=== PATIENT | female | born 1980 | race Caucasian/White ===

== ENCOUNTER → 2016-03-17 | Outpatient (CLI) | payer OTHER ==
[~2016-03-17] MED LIST: CARB100S PO; DIFL150T PO; JEVILIQ12; PHEN-414 PO; PHEN16.2 PO; ZOFR4TAB3 SL
== END ==
LOC: EEVIPCON 10:53 → TMNT 10:53
PROVIDERS: ATTEND Internal Medicine Interventional Cardiology
DX: E66.9 Obesity, unspecified (principal)
CPT/HCPCS: 97802

== ENCOUNTER → 2016-06-19 | Outpatient (CLI) | payer OTHER ==
[2016-06-19 10:20] LABS: HEMATOCRIT 44.5 % (35.0-46.0); MEAN CELL VOLUME 99.1 FL (80.0-100.0); MEAN CORPUSCULAR HGB CONC 34.3 % (32.0-36.0); PLATELET COUNT 301 TH/MM3 (150-450); RED BLOOD COUNT 4.49 MIL/MM3 (4.00-5.30); RED CELL DISTRIBUTION WIDTH 12.2 % (11.6-17.2); REVIEW FLAG FINAL; WHITE BLOOD COUNT 6.4 TH/MM3 (4.0-11.0)
[2016-06-19 10:48] LABS: ALKALINE PHOSPHATASE 85 U/L (45-117); ALT (GPT) 27 U/L (10-53); ANION GAP 9 MEQ/L (5-15); AST (GOT) 24 U/L (15-37); BLOOD UREA NITROGEN 8 MG/DL (7-18); CHLORIDE 98 MEQ/L (98-107); GLOMERULAR FILTRATION RATE 236 ML/MIN (>89); GLUCOSE,FASTING 79 MG/DL (74-99); PHENOBARBITAL 19.9 MCG/ML (15.0-40.0); POTASSIUM 4.1 MEQ/L (3.5-5.1); SODIUM (NA) 134 MEQ/L (136-145); TOTAL BILIRUBIN ADULT 0.2 MG/DL (0.2-1.0)
[2016-06-19 11:15] LABS: FREE T4 0.63 NG/DL (0.76-1.46); MAGNESIUM 2.3 MG/DL (1.5-2.5)
== END ==
LOC: CLAB 09:44
PROVIDERS: ATTEND Internal Medicine Endocrinology, Diabetes & Metabolism
DX: G40.209 Localization-related (focal) (partial) symptomatic epilepsy and epileptic syndromes with complex partial seizures, not intractable, without status epilepticus (principal); E03.0 Congenital hypothyroidism with diffuse goiter; E22.1 Hyperprolactinemia; R78.9 Finding of unspecified substance, not normally found in blood; E89.89 Other postprocedural endocrine and metabolic complications and disorders; Z51.81 Encounter for therapeutic drug level monitoring
CPT/HCPCS: 36415; 80053; 80156; 80184; 82306; 82533; 82607; 82747; 83735; 83970; 84100; 84146; 84439; 84443; 85027

== ENCOUNTER 2016-07-13 07:00 | Emergency (ER) | payer OTHER ==
[~2016-07-13] VITALS: Ht 137.2 cm; Wt 37.0 kg
[~2016-07-13 07:00] MED LIST changes: -ZOFR4TAB3 SL
[2016-07-13 07:10] VITALS: BP 101/59; PULSE 87; RESP 20; TEMP 97.7; O2SAT 100
--- NOTE | 2016-07-13 07:33 | PD ---
HPI Chief Complaint: GI Complaint Time Seen by Provider: 07:10 Travel History International Travel<30 days: No Contact w/Intl Traveler<30days: No Traveled to known affect area: No History of Present Illness HPI 35-year-old female was brought in by parents for vomiting. Mother states that patient vomited once this morning with blood-tinged vomitus. Patient has history of Julian's disorder and spastic quadriparesis, wheelchair-bound, and gastric tube feeding dependent. Patient was advised by her physician to be on nothing by mouth. Mother reported no fever at home. Mother reported no diarrhea. Patient has history of esophagitis in the past. Patient was seen by Dr. Morgan, and had panendoscopy about 6 months ago. Patient is on seizure medications and mother states that the level was checked 2 weeks ago was within therapeutic range. 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) Neurologic: Yes (JULIAN SYNDROME, CEREBRAL PALSY) Reproductive: No Respiratory: Yes (PNEUMONIA ) Immunizations Current: Yes Pneumonia: Yes Seizures: Yes Thyroid Disease: No PNEUMOCCOCAL Vaccine (Year): 1 ?: Not Menopausal: Yes Past Surgical History Abdominal Surgery: Yes (G-TUBE, CHOLECYSTECTOMY) Body Medical Devices: PEG TUBE/TUBES IN EARS Cholecystectomy: Yes Ear Surgery: Yes Eye Surgery: Yes (BILAT STRABISMUS) Genitourinary Surgery: Yes Pacemaker: No Other Surgery: Yes Social History Alcohol Use: No Tobacco Use: No Substance Use: No Allergies-Medications (Allergen,Severity, Reaction): Coded Allergies: Chloral Hydrate (Verified Allergy, Severe, AGITATION, 07/13/16) Contrast Media (Verified Allergy, Severe, 07/13/16) Keppra (Verified Allergy, Severe, AGITATION, 07/13/16) Levetiracetam (Verified Allergy, Severe, AGITATION, 07/13/16) Vimpat (Verified Allergy, Severe, Irritability/Anxiety, 07/13/16) Adhesives (Verified Allergy, Intermediate, 07/13/16) SKIN IRRITATION WITH MANY TYPES OF ADHESIVES. Neosporin (Verified Allergy, Intermediate, Rash, 07/13/16) Reported Meds & Prescriptions Reported Meds & Active Scripts Active Reported Jevity 1.5 Suleiman (Nutritional Supplements) 1 Liq Liq Phenobarbital 16.2 Mg Tab 16.2 Mg PO BID Phenobarbital 32.4 Mg Tab 32.4 Mg PO BID Tegretol Liq (Carbamazepine) 100 Mg/5 Ml Susp 400 Mg PO BID Review of Systems General / Constitutional: No: Fever Eyes: No: Visual changes HENT: No: Headaches Cardiovascular: No: Chest Pain or Discomfort Respiratory: No: Shortness of Breath Gastrointestinal: Positive: Vomiting, No: Abdominal Pain Genitourinary: No: Dysuria Musculoskeletal: No: Pain Skin: No Rash Neurologic: No: Weakness Psychiatric: No: Depression Endocrine: No: Polydipsia Hematologic/Lymphatic: No: Easy Bruising Physical Exam Narrative GENERAL: Well-nourished, well-developed patient. SKIN: Focused skin assessment warm/dry. HEAD: Normocephalic. EYES: No scleral icterus. No injection or drainage. NECK: Supple, trachea midline. No JVD or lymphadenopathy. CARDIOVASCULAR: Regular rate and rhythm without murmurs, gallops, or rubs. RESPIRATORY: Breath sounds equal bilaterally. No accessory muscle use. GASTROINTESTINAL: Abdomen soft, non-tender, nondistended. Gastric feeding tube in place MUSCULOSKELETAL: No cyanosis, or edema. Neurologic exam: Muscular atrophy. Wheelchair bound. Data Data Last Documented VS Vital Signs Date Time Temp Pulse Resp B/P Pulse Ox O2 Delivery O2 Flow Rate FiO2 07/13/16 07:10 97.7 87 20 101/59 100 Orders Hydroxyzine Hcl Inj (Vistaril Inj) (07/13/16 07:30) MDM Medical Decision Making Medical Screen Exam Complete: Yes Emergency Medical Condition: Yes Medical Record Reviewed: Yes Differential Diagnosis Differential diagnosis including esophagitis, Tvoa-Agarwal tear, gastroenteritis Narrative Course 35-year-old female with history of esophagitis and vomited once this morning with blood-tinged vomitus. Patient is on nothing by mouth. Patient received nutrition through gastric feeding tube. Patient otherwise stable this morning. Vistaril 25 mg IM. Patient was advised by her physician to be on nothing by mouth. We'll try Zofran ODT at home for now. Diagnosis Primary Impression: Esophagitis Patient Instructions: General Instructions Additional Instructions: Zofran as needed. Follow-up with personal physician and GI specialist. Return if worse. Med/Other Pt SpecificInfo: Prescription(s) given Scripts Ondansetron Odt (Zofran Odt)4 Mg Tab4 Mg SL Q6HR PRN (Nausea/Vomiting) #10 TAB Prov:Rip Barrow MD 07/13/16 Disposition: 01 DISCHARGE HOME Condition: Stable Rip Barrow MD July 13, 2016 07:33
[2016-07-13] MEDS ORDERED: ZOFR4TAB3 SL (07:39)
== END 2016-07-13 07:45 | disposition home or self-care (01) ==
LOC: NEPE 07:00
DX: K20.9 Esophagitis, unspecified (principal)
CPT/HCPCS: 96372; 99283; J3410

== ENCOUNTER → 2016-11-14 | Outpatient (CLI) | payer OTHER ==
[~2016-11-14] MED LIST changes: -DIFL150T PO; +SULF20OR PEG; +VITA1000 PO; +ZOFR4TAB3 SL
[2016-11-14 10:12] LABS: AUTOMATED NEUTROPHIL # 2.6 TH/MM3 (1.8-7.7); BASOPHIL % 1.1 % (0.0-2.0); EOSINOPHIL # 0.3 TH/MM3 (0-0.4); EOSINOPHIL % 6.4 % (0.0-4.0); HEMATOCRIT 41.2 % (35.0-46.0); HEMO FLAGS DIFF FINAL; LYMPH % 29.1 % (9.0-44.0); LYMPHOCYTE # 1.3 TH/MM3 (1.0-4.8); MEAN CELL VOLUME 98.5 FL (80.0-100.0); MEAN CORPUSCULAR HEMOGLOBIN 33.7 PG (27.0-34.0); MEAN CORPUSCULAR HGB CONC 34.2 % (32.0-36.0); MONO % 7.8 % (0.0-8.0); NEUT % 55.6 % (16.0-70.0); PLATELET COUNT 246 TH/MM3 (150-450); RED BLOOD COUNT 4.18 MIL/MM3 (4.00-5.30); RED CELL DISTRIBUTION WIDTH 12.1 % (11.6-17.2); WHITE BLOOD COUNT 4.6 TH/MM3 (4.0-11.0)
[2016-11-14 10:37] LABS: ANION GAP 6 MEQ/L (5-15); AST (GOT) 20 U/L (15-37); BICARBONATE 25.6 MEQ/L (21.0-32.0); BLOOD UREA NITROGEN 8 MG/DL (7-18); CHLORIDE 102 MEQ/L (98-107); GLOMERULAR FILTRATION RATE 274 ML/MIN (>89); GLUCOSE,FASTING 81 MG/DL (74-99); SODIUM (NA) 134 MEQ/L (136-145)
[2016-11-14 10:43] LABS: ALKALINE PHOSPHATASE 75 U/L (45-117); ALT (GPT) 25 U/L (10-53); TOTAL BILIRUBIN ADULT 0.3 MG/DL (0.2-1.0)
== END ==
LOC: CLAB 09:27
PROVIDERS: ATTEND Specialist
DX: R53.83 Other fatigue (principal); M31.6 Other giant cell arteritis; G40.209 Localization-related (focal) (partial) symptomatic epilepsy and epileptic syndromes with complex partial seizures, not intractable, without status epilepticus; Z51.81 Encounter for therapeutic drug level monitoring
CPT/HCPCS: 36415; 80053; 80156; 80184; 85025

== ENCOUNTER 2017-03-30 15:58 | Emergency (ER) | payer OTHER ==
[2017-03-30 16:01] VITALS: BP 120/65; PULSE 87; RESP 24; TEMP 99.4; O2SAT 97
[2017-03-30] MEDS ORDERED: FAMO40S PO (17:27)
[2017-03-30] MEDS ORDERED: SODIUM CHLORIDE 0.9% FLUSH 10 ML FLUSH IVF PRN (17:45)
[2017-03-30 18:20] VITALS: BP 148/70; PULSE 93; RESP 17; O2SAT 100
--- NOTE | 2017-03-30 18:20 | PD ---
HPI Chief Complaint: GI Complaint Time Seen by Provider: 17:26 Travel History International Travel<30 days: No Contact w/Intl Traveler<30days: No Traveled to known affect area: No History of Present Illness HPI 36-year-old female presents to the emergency room for evaluation of black tarry stools for the past 2 days. Patient has history of cerebral palsy and the mentation of a 3-month-old according to her mother. Mother provides all history. Mother states about 2 days ago patient had black discharge from her G- tube. She flushed it out and it has not recurred. The following day, yesterday , she noticed dark, black, tarry stool. She had similar stool today. Patient ingests nothing by mouth. Her G-tube is flushing and feeding normally. She has not been fussy. No history of fevers. No nausea or vomiting. She follows with Dr. Morgan. 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) Neurologic: Yes (JULIAN SYNDROME, CEREBRAL PALSY) Reproductive: No Respiratory: Yes (PNEUMONIA ) Immunizations Current: Yes Pneumonia: Yes Seizures: Yes Thyroid Disease: No PNEUMOCCOCAL Vaccine (Year): 1 ?: Not Menopausal: Yes Past Surgical History Abdominal Surgery: Yes (G-TUBE, CHOLECYSTECTOMY) Body Medical Devices: PEG TUBE/TUBES IN EARS Cholecystectomy: Yes Ear Surgery: Yes Eye Surgery: Yes (BILAT STRABISMUS) Genitourinary Surgery: Yes Pacemaker: No Other Surgery: Yes Social History Alcohol Use: No Tobacco Use: No Substance Use: No Allergies-Medications (Allergen,Severity, Reaction): Coded Allergies: chloral hydrate (Unverified Allergy, Severe, AGITATION, 03/30/17) diatrizoate meglumine (Unverified Allergy, Severe, 03/30/17) gadobenic acid (Unverified Allergy, Severe, 03/30/17) gadodiamide (Unverified Allergy, Severe, 03/30/17) gadoteridol (Unverified Allergy, Severe, 03/30/17) iodixanol (Unverified Allergy, Severe, 03/30/17) iohexol (Unverified Allergy, Severe, 03/30/17) lacosamide (Unverified Allergy, Severe, Irritability/Anxiety, 03/30/17) levetiracetam (Unverified Allergy, Severe, AGITATION, 03/30/17) adhesive (Unverified Allergy, Intermediate, 03/30/17) SKIN IRRITATION WITH MANY TYPES OF ADHESIVES. bacitracin (Unverified Allergy, Intermediate, Rash, 03/30/17) gramicidin D (Unverified Allergy, Intermediate, Rash, 03/30/17) neomycin (Unverified Allergy, Intermediate, Rash, 03/30/17) polymyxin B (Unverified Allergy, Intermediate, Rash, 03/30/17) Reported Meds & Prescriptions Reported Meds & Active Scripts Active Omeprazole 40 Mg Cap 40 Mg PO DAILY Zofran Odt (Ondansetron Odt) 4 Mg Tab 4 Mg SL Q6HR PRN Reported Pepcid Liq (Famotidine) 40 Mg/5 Ml Susp 20 Mg PO DAILY Vitamin D-1000 (Cholecalciferol) 1,000 Unit Tab 10,000 Units PO 2XWEEK Jevity 1.5 Suleiman (Nutritional Supplements) 1 Liq Liq Phenobarbital 16.2 Mg Tab 16.2 Mg PO BID Phenobarbital 32.4 Mg Tab 32.4 Mg PO BID Tegretol Liq (Carbamazepine) 100 Mg/5 Ml Susp 400 Mg PO BID Review of Systems Except as stated in HPI: all other systems reviewed are Neg Physical Exam Narrative GENERAL: Well-nourished female in no acute distress. Afebrile. SKIN: Focused skin assessment warm/dry. HEAD: Normocephalic. EYES: No scleral icterus. No injection or drainage. NECK: Supple, trachea midline. No JVD or lymphadenopathy. CARDIOVASCULAR: Regular rate and rhythm without murmurs, gallops, or rubs. RESPIRATORY: Breath sounds equal bilaterally. No accessory muscle use. GASTROINTESTINAL: Abdomen soft, nondistended. Data Data Last Documented VS Vital Signs Date Time Temp Pulse Resp B/P (MAP) Pulse Ox O2 Delivery O2 Flow Rate FiO2 03/30/17 19:29 85 16 100/66 (77) 98 Room Air 03/30/17 16:01 99.4 Orders Orders Complete Blood Count With Diff (03/30/17 17:36) Comprehensive Metabolic Panel (03/30/17 17:36) Lipase (03/30/17 17:36) Prothrombin Time / Inr (Pt) (03/30/17 17:36) Act Partial Throm Time (Ptt) (03/30/17 17:36) Type And Screen (03/30/17 17:36) Ecg Monitoring (03/30/17 17:36) Iv Access Insert/Monitor (03/30/17 17:36) Oximetry (03/30/17 17:36) Sodium Chloride 0.9% Flush (Ns Flush) (03/30/17 17:45) Ct Abd/Pel W/O Iv Contrast (03/30/17 ) Pantoprazole Inj (Protonix Inj) (03/30/17 20:00) Ed Discharge Order (03/30/17 19:54) Labs Laboratory Tests Test 03/30/17 18:17 White Blood Count 7.1 TH/MM3 Red Blood Count 3.64 MIL/MM3 Hemoglobin 12.6 GM/DL Hematocrit 36.6 % Mean Corpuscular Volume 100.5 FL Mean Corpuscular Hemoglobin 34.7 PG Mean Corpuscular Hemoglobin Concent 34.5 % Red Cell Distribution Width 12.1 % Platelet Count 275 TH/MM3 Mean Platelet Volume 9.4 FL Neutrophils (%) (Auto) 65.6 % Lymphocytes (%) (Auto) 21.9 % Monocytes (%) (Auto) 6.2 % Eosinophils (%) (Auto) 5.2 % Basophils (%) (Auto) 1.1 % Neutrophils # (Auto) 4.7 TH/MM3 Lymphocytes # (Auto) 1.6 TH/MM3 Monocytes # (Auto) 0.4 TH/MM3 Eosinophils # (Auto) 0.4 TH/MM3 Basophils # (Auto) 0.1 TH/MM3 CBC Comment DIFF FINAL Differential Comment Prothrombin Time 10.2 SEC Prothromb Time International Ratio 1.0 RATIO Activated Partial Thromboplast Time 23.8 SEC Blood Urea Nitrogen 9 MG/DL Creatinine 0.25 MG/DL Random Glucose 81 MG/DL Total Protein 6.8 GM/DL Albumin 2.7 GM/DL Calcium Level 8.4 MG/DL Alkaline Phosphatase 78 U/L Aspartate Amino Transf (AST/SGOT) 33 U/L Alanine Aminotransferase (ALT/SGPT) 33 U/L Total Bilirubin 0.1 MG/DL Sodium Level 133 MEQ/L Potassium Level 3.9 MEQ/L Chloride Level 100 MEQ/L Carbon Dioxide Level 27.4 MEQ/L Anion Gap 6 MEQ/L Estimat Glomerular Filtration Rate 312 ML/MIN Lipase 161 U/L MDM Medical Decision Making Medical Screen Exam Complete: Yes Emergency Medical Condition: Yes Medical Record Reviewed: Yes Differential Diagnosis GI bleed, G-tube malplacement, foreign body ingestion Narrative Course 36-year-old female history of CP presents to the emergency room with her mother for evaluation of dark, tarry stools for the past 2 days. Mother provides all history; patient has mentality of a 3-month-old. Mother denies any changes in behavior or increased fussiness. She has had no nausea or vomiting. She is fed through a G-tube and is nothing by mouth. She follows with Dr. Morgan. Vital signs stable. Patient is well-appearing. Abdomen soft, nontender. IV access established and basic labs obtained. CBC is unremarkable. Hemoglobin is 12.6. CMP is essentially unremarkable. CT of the abdomen and pelvis shows no acute abnormality. Patient was given 40 mg bolus of IV Protonix. Because she is so stable, has good home care, and good follow-up, she can follow up outpatient for endoscopy and/or colonoscopy. Her mother was encouraged to call GI doctor first thing Sunday for an appointment next week. She will return sooner for any changes or worsening symptoms. Discharged with prescription for omeprazole. Mother understands and agrees to plan. Diagnosis Primary Impression: GI bleed Qualified Codes: K92.1 - Melena Referrals: Primary Care Physician Additional Instructions: Omeprazole as directed, until gone. Follow-up with Dr. Morgan next week. Call Sunday morning for an appointment. Return to the emergency room for worsening symptoms, as discussed. Med/Other Pt SpecificInfo: Prescription(s) given Scripts Omeprazole (Omeprazole) 40 Mg Cap 40 MG PO DAILY, #30 CAP 0 Refills Prov: Raul Hedrick MD 03/30/17 Disposition: 01 DISCHARGE HOME Condition: Stable Augusta Choi Mar 30, 2017 18:20
[2017-03-30 18:43] LABS: AUTOMATED NEUTROPHIL # 4.7 TH/MM3 (1.8-7.7); BASOPHIL # 0.1 TH/MM3 (0-0.2); BASOPHIL % 1.1 % (0.0-2.0); EOSINOPHIL # 0.4 TH/MM3 (0-0.4); EOSINOPHIL % 5.2 % (0.0-4.0); HEMATOCRIT 36.6 % (35.0-46.0); HEMOGLOBIN 12.6 GM/DL (11.6-15.3); LYMPH % 21.9 % (9.0-44.0); LYMPHOCYTE # 1.6 TH/MM3 (1.0-4.8); MEAN CELL VOLUME 100.5 FL (80.0-100.0); MEAN CORPUSCULAR HEMOGLOBIN 34.7 PG (27.0-34.0); MEAN CORPUSCULAR HGB CONC 34.5 % (32.0-36.0); MEAN PLATELET VOLUME 9.4 FL (7.0-11.0); MONO % 6.2 % (0.0-8.0); MONOCYTE # 0.4 TH/MM3 (0-0.9); NEUT % 65.6 % (16.0-70.0); PLATELET COUNT 275 TH/MM3 (150-450); RED BLOOD COUNT 3.64 MIL/MM3 (4.00-5.30); RED CELL DISTRIBUTION WIDTH 12.1 % (11.6-17.2); WHITE BLOOD COUNT 7.1 TH/MM3 (4.0-11.0)
--- NOTE | 2017-03-30 18:54 | RADRPT ---
EXAM DATE/TIME: 03/30/2017 18:24 [facility] COMPARISON: CT ABDOMEN & PELVIS W/O CONTRAST, February 20, 2016, 9:20. INDICATIONS : GI bleed for two days. ORAL CONTRAST: No oral contrast ingested. RADIATION DOSE: 6.62 CTDIvol (mGy) MEDICAL HISTORY : Seizures. Cerebral palsy. SURGICAL HISTORY : Cholecystectomy. Feeding tube. ENCOUNTER: Initial ACUITY: 2 days PAIN SCALE: Non-responsive LOCATION: Bilateral lower quadrant TECHNIQUE: Volumetric scanning of the abdomen and pelvis was performed. Using automated exposure control and ad justment of the mA and/or kV according to patient size, radiation dose was kept as low as reasonably achievable to obtain optimal diagnostic quality images. DICOM format image data is available electro nically for review and comparison. FINDINGS: LOWER LUNGS: The visualized lower lungs are clear. A small hiatal hernia. LIVER: Homogeneous density without lesion. There is no dilation of the biliary tree. Gallbladder surgically absent. SPLEEN: Normal size without lesion. PANCREAS: Within normal limits. KIDNEYS: Normal in size and shape. There is no mass or hydronephrosis. Multiple bilateral nonobstructing spencer l calculi measuring 1-2 mm in size. ADRENAL GLANDS: Within normal limits. VASCULAR: There is no aortic aneurysm. BOWEL/MESENTERY: The stomach, small bowel, and colon demonstrate no acute abnormality. There is no free intraperitone al air or fluid. Gastrostomy tube in good position. ABDOMINAL WALL: Within normal limits. RETROPERITONEUM: There is no lymphadenopathy. BLADDER: Multiple small layering stones within the urinary bladder. The bladder is otherwise unremarkable. REPRODUCTIVE: Within normal limits. Uterus is just to the right of midline. INGUINAL: There is no lymphadenopathy or hernia. MUSCULOSKELETAL: Within normal limits for patient age. CONCLUSION: 1. No acute abnormality. 2. Bilateral nonobstructing renal calculi. 3. Multiple small bladder stones. Fidencio Kendall Jr., MD on March 30, 2017 at 18:46 Board Certified Radiologist. This report was verified electronically.
[2017-03-30 19:01] LABS: PROTHROMBIN TIME - PATIENT 10.2 SEC (9.8-11.6)
[2017-03-30 19:07] LABS: ALBUMIN 2.7 GM/DL (3.4-5.0); AST (GOT) 33 U/L (15-37); BICARBONATE 27.4 MEQ/L (21.0-32.0); BLOOD UREA NITROGEN 9 MG/DL (7-18); CALCIUM 8.4 MG/DL (8.5-10.1); CHLORIDE 100 MEQ/L (98-107); CREATININE 0.25 MG/DL (0.50-1.00); GLOMERULAR FILTRATION RATE 312 ML/MIN (>89); GLUCOSE,RANDOM 81 MG/DL (74-106); LIPASE 161 U/L (73-393); SODIUM (NA) 133 MEQ/L (136-145)
[2017-03-30 19:11] LABS: ALKALINE PHOSPHATASE 78 U/L (45-117); ALT (GPT) 33 U/L (10-53); TOTAL BILIRUBIN ADULT 0.1 MG/DL (0.2-1.0); TOTAL PROTEIN 6.8 GM/DL (6.4-8.2)
[2017-03-30 19:29] VITALS: BP 100/66; PULSE 85; RESP 16; O2SAT 98
[2017-03-30] MEDS ORDERED: OMEP40CA2 PO (19:56)
[2017-03-30] MEDS ORDERED: PANTOPRAZOLE SODIUM 40 MG VIAL IV PUSH ONE (20:00)
== END 2017-03-30 21:06 | disposition home or self-care (01) ==
LOC: NEPE 15:58
DX: K92.1 Melena (principal); N20.0 Calculus of kidney; N21.0 Calculus in bladder; G80.9 Cerebral palsy, unspecified; K21.9 Gastro-esophageal reflux disease without esophagitis; M41.9 Scoliosis, unspecified; Z93.1 Gastrostomy status; Z88.8 Allergy status to other drugs, medicaments and biological substances; Z79.899 Other long term (current) drug therapy
CPT/HCPCS: 74176; 80053; 83690; 85025; 85610; 85730; 86850; 86900; 86901; 96374; 99285; C9113

== ENCOUNTER → 2017-04-03 | Outpatient (CLI) | payer OTHER ==
[~2017-04-03] MED LIST changes: +FAMO40S PO; +OMEP40CA2 PO; -SULF20OR PEG
[2017-04-03 11:51] LABS: AUTOMATED NEUTROPHIL # 3.1 TH/MM3 (1.8-7.7); BASOPHIL # 0.1 TH/MM3 (0-0.2); BASOPHIL % 1.4 % (0.0-2.0); EOSINOPHIL # 0.3 TH/MM3 (0-0.4); EOSINOPHIL % 7.1 % (0.0-4.0); HEMATOCRIT 36.9 % (35.0-46.0); HEMOGLOBIN 12.7 GM/DL (11.6-15.3); LYMPH % 19.5 % (9.0-44.0); MEAN CELL VOLUME 101.1 FL (80.0-100.0); MEAN CORPUSCULAR HEMOGLOBIN 34.9 PG (27.0-34.0); MEAN CORPUSCULAR HGB CONC 34.5 % (32.0-36.0); MEAN PLATELET VOLUME 9.3 FL (7.0-11.0); MONO % 9.4 % (0.0-8.0); MONOCYTE # 0.5 TH/MM3 (0-0.9); NEUT % 62.6 % (16.0-70.0); PLATELET COUNT 303 TH/MM3 (150-450); RED BLOOD COUNT 3.64 MIL/MM3 (4.00-5.30); RED CELL DISTRIBUTION WIDTH 12.1 % (11.6-17.2); WHITE BLOOD COUNT 4.9 TH/MM3 (4.0-11.0)
== END ==
LOC: CLAB 11:26
PROVIDERS: ATTEND Family Medicine
DX: K92.2 Gastrointestinal hemorrhage, unspecified (principal)
CPT/HCPCS: 36415; 85025

== ENCOUNTER → 2017-05-07 | Outpatient (CLI) | payer OTHER ==
[2017-05-07 11:02] LABS: AUTOMATED NEUTROPHIL # 1.6 TH/MM3 (1.8-7.7); BASOPHIL % 0.2 % (0.0-2.0); EOSINOPHIL # 0.4 TH/MM3 (0-0.4); EOSINOPHIL % 10.2 % (0.0-4.0); HEMATOCRIT 42.1 % (35.0-46.0); HEMOGLOBIN 14.8 GM/DL (11.6-15.3); LYMPHOCYTE # 1.5 TH/MM3 (1.0-4.8); MEAN CELL VOLUME 97.9 FL (80.0-100.0); MEAN CORPUSCULAR HEMOGLOBIN 34.3 PG (27.0-34.0); MEAN CORPUSCULAR HGB CONC 35.1 % (32.0-36.0); MEAN PLATELET VOLUME 9.5 FL (7.0-11.0); MONO % 8.2 % (0.0-8.0); MONOCYTE # 0.3 TH/MM3 (0-0.9); NEUT % 42.4 % (16.0-70.0); PLATELET COUNT 248 TH/MM3 (150-450); RED CELL DISTRIBUTION WIDTH 12.4 % (11.6-17.2); WHITE BLOOD COUNT 3.8 TH/MM3 (4.0-11.0)
[2017-05-07 11:12] LABS: ALBUMIN 3.5 GM/DL (3.4-5.0); AST (GOT) 24 U/L (15-37); BICARBONATE 27.3 MEQ/L (21.0-32.0); BLOOD UREA NITROGEN 7 MG/DL (7-18); CHLORIDE 99 MEQ/L (98-107); GLUCOSE,FASTING 80 MG/DL (74-99); SODIUM (NA) 132 MEQ/L (136-145)
[2017-05-07 11:13] LABS: CREATININE 0.32 MG/DL (0.50-1.00); GLOMERULAR FILTRATION RATE 235 ML/MIN (>89)
[2017-05-07 11:16] LABS: ALKALINE PHOSPHATASE 103 U/L (45-117); ALT (GPT) 24 U/L (10-53); CARBAMAZEPINE (TEGRETOL) 5.9 MCG/ML (4.0-12.0); TOTAL BILIRUBIN ADULT 0.2 MG/DL (0.2-1.0); TOTAL PROTEIN 7.9 GM/DL (6.4-8.2)
[2017-05-07 11:25] LABS: FREE T4 0.63 NG/DL (0.76-1.46); LUTEINIZING HORMONE 10.7 mIU/mL; PHOSPHORUS 3.9 MG/DL (2.5-4.9)
[2017-05-07 11:28] LABS: MAGNESIUM 2.2 MG/DL (1.5-2.5)
[2017-05-09 13:13] LABS: PROLACTIN 12.1 ng/mL (4.8 - 23.3)
== END ==
LOC: CLAB 10:04
PROVIDERS: ATTEND Internal Medicine Gastroenterology
DX: G40.209 Localization-related (focal) (partial) symptomatic epilepsy and epileptic syndromes with complex partial seizures, not intractable, without status epilepticus (principal); G93.3 Postviral and related fatigue syndromes; M31.6 Other giant cell arteritis; G61.9 Inflammatory polyneuropathy, unspecified; E04.9 Nontoxic goiter, unspecified; E03.9 Hypothyroidism, unspecified; K92.1 Melena; E55.9 Vitamin D deficiency, unspecified; Z51.81 Encounter for therapeutic drug level monitoring
CPT/HCPCS: 36415; 80053; 80156; 80184; 82306; 82670; 83001; 83002; 83735; 84100; 84146; 84439; 84443; 85025

== ENCOUNTER → 2017-06-13 | Outpatient (CLI) | payer OTHER ==
[2017-06-13 12:17] LABS: HEMATOCRIT 39.3 % (35.0-46.0); HEMOGLOBIN 13.5 GM/DL (11.6-15.3); MEAN CELL VOLUME 96.9 FL (80.0-100.0); MEAN CORPUSCULAR HEMOGLOBIN 33.4 PG (27.0-34.0); MEAN CORPUSCULAR HGB CONC 34.4 % (32.0-36.0); MEAN PLATELET VOLUME 9.6 FL (7.0-11.0); PLATELET COUNT 210 TH/MM3 (150-450); RED BLOOD COUNT 4.05 MIL/MM3 (4.00-5.30); RED CELL DISTRIBUTION WIDTH 12.5 % (11.6-17.2); WHITE BLOOD COUNT 4.7 TH/MM3 (4.0-11.0)
[2017-06-13 12:48] LABS: ALBUMIN 3.2 GM/DL (3.4-5.0); AST (GOT) 23 U/L (15-37); BICARBONATE 22.5 MEQ/L (21.0-32.0); BLOOD UREA NITROGEN 9 MG/DL (7-18); CALCIUM 8.3 MG/DL (8.5-10.1); CHLORIDE 99 MEQ/L (98-107); CREATININE 0.31 MG/DL (0.50-1.00); GLOMERULAR FILTRATION RATE 244 ML/MIN (>89); GLUCOSE,FASTING 79 MG/DL (74-99); SODIUM (NA) 129 MEQ/L (136-145)
[2017-06-13 12:49] LABS: ALT (GPT) 22 U/L (10-53)
[2017-06-13 12:51] LABS: ALKALINE PHOSPHATASE 82 U/L (45-117); TOTAL BILIRUBIN ADULT 0.2 MG/DL (0.2-1.0); TOTAL PROTEIN 7.7 GM/DL (6.4-8.2)
== END ==
LOC: CLAB 11:47
PROVIDERS: ATTEND Specialist
DX: G40.209 Localization-related (focal) (partial) symptomatic epilepsy and epileptic syndromes with complex partial seizures, not intractable, without status epilepticus (principal); M31.6 Other giant cell arteritis; G61.9 Inflammatory polyneuropathy, unspecified; G93.3 Postviral and related fatigue syndromes
CPT/HCPCS: 36415; 80053; 85027

== ENCOUNTER → 2017-06-27 | Outpatient (CLI) | payer OTHER ==
[2017-06-27 09:35] LABS: CREATININE 0.39 MG/DL (0.50-1.00)
== END ==
LOC: CLAB 08:53
PROVIDERS: ATTEND Specialist
DX: G40.209 Localization-related (focal) (partial) symptomatic epilepsy and epileptic syndromes with complex partial seizures, not intractable, without status epilepticus (principal)
CPT/HCPCS: 36415; 80048

== ENCOUNTER 2017-08-14 07:09 | Emergency (ER) | payer OTHER ==
[2017-08-14 07:16] VITALS: BP 99/65; PULSE 95; RESP 18; TEMP 99; O2SAT 98
[2017-08-14] MEDS ORDERED: PREV30TA3 G-TUBE (07:37)
[2017-08-14] MEDS ORDERED: ZANT150T2 G-TUBE (07:37)
--- NOTE | 2017-08-14 08:01 | PD ---
HPI Chief Complaint: Edema Time Seen by Provider: 07:56 Travel History International Travel<30 days: No Contact w/Intl Traveler<30days: No Traveled to known affect area: No History of Present Illness HPI 37-year-old female presents with her mother with concern of right arm swelling. Her mother states that she has fractured that arm 2 times in the past. She states that she has not had any known injury that she is aware of. She denies any other complaints for her. The mother states she just noticed the symptoms and that it hurts if you touch the area. History is limited from patient as she has CP in the mentality of a 3-month-old per records. 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) Neurologic: Yes (JULIAN SYNDROME, CEREBRAL PALSY) Reproductive: No Respiratory: Yes (PNEUMONIA ) Immunizations Current: Yes Pneumonia: Yes Seizures: Yes Thyroid Disease: No PNEUMOCCOCAL Vaccine (Year): 1 ?: Not Menopausal: Yes Past Surgical History Abdominal Surgery: Yes (G-TUBE, CHOLECYSTECTOMY) Body Medical Devices: PEG TUBE/TUBES IN EARS Cholecystectomy: Yes Ear Surgery: Yes Eye Surgery: Yes (BILAT STRABISMUS) Genitourinary Surgery: Yes Pacemaker: No Other Surgery: Yes Social History Alcohol Use: No Tobacco Use: No Substance Use: No Allergies-Medications (Allergen,Severity, Reaction): Coded Allergies: chloral hydrate (Unverified Allergy, Severe, AGITATION, 08/14/17) diatrizoate meglumine (Unverified Allergy, Severe, 08/14/17) gadobenic acid (Unverified Allergy, Severe, 08/14/17) gadodiamide (Unverified Allergy, Severe, 08/14/17) gadoteridol (Unverified Allergy, Severe, 08/14/17) iodixanol (Unverified Allergy, Severe, 08/14/17) iohexol (Unverified Allergy, Severe, 08/14/17) lacosamide (Unverified Allergy, Severe, Irritability/Anxiety, 08/14/17) levetiracetam (Unverified Allergy, Severe, AGITATION, 08/14/17) adhesive (Unverified Allergy, Intermediate, 08/14/17) SKIN IRRITATION WITH MANY TYPES OF ADHESIVES. bacitracin (Unverified Allergy, Intermediate, Rash, 08/14/17) gramicidin D (Unverified Allergy, Intermediate, Rash, 08/14/17) neomycin (Unverified Allergy, Intermediate, Rash, 08/14/17) polymyxin B (Unverified Allergy, Intermediate, Rash, 08/14/17) Reported Meds & Prescriptions Reported Meds & Active Scripts Active Reported Zantac (Ranitidine HCl) 150 Mg Tab 150 Mg G-TUBE DAILY Prevacid Solutab ODT (Lansoprazole) 30 Mg Tab 30 Mg G-TUBE DAILY Mix with 4 ml water before giving via tube. Vitamin D-1000 (Cholecalciferol) 1,000 Unit Tab 10,000 Units PO 2XWEEK Jevity 1.5 Suleiman (Nutritional Supplements) 1 Liq Liq Phenobarbital 16.2 Mg Tab 16.2 Mg PO BID Phenobarbital 32.4 Mg Tab 32.4 Mg PO BID Tegretol Liq (Carbamazepine) 100 Mg/5 Ml Susp 400 Mg PO BID Review of Systems ROS Limitations: Other: (Cerebral palsy) Physical Exam Narrative GENERAL: 37-year-old female sitting in her wheelchair SKIN: Focused skin assessment warm/dry. HEAD: Atraumatic. EYES: No scleral icterus. No injection or drainage. ENT: No nasal bleeding or discharge. Mucous membranes pink and moist. NECK: Trachea midline. CARDIOVASCULAR: Regular rate and rhythm. RESPIRATORY: No accessory muscle use. No increased effort GASTROINTESTINAL: Abdomen soft, nondistended. MUSCULOSKELETAL: No obvious deformities. Swelling noted to right upper arm without overlying erythema, neurovascularly intact, no lacerations over, compartments soft. Hard to differentiate pain but patient seems to react when you palpate right upper arm Data Data Last Documented VS Vital Signs Date Time Temp Pulse Resp B/P (MAP) Pulse Ox O2 Delivery O2 Flow Rate FiO2 08/14/17 10:03 96 Room Air 08/14/17 10:02 86 20 08/14/17 07:16 99.0 Orders Orders Humerus (Min 2vws) (08/14/17 ) Us Arm Venous Doppler (08/14/17 ) Complete Blood Count With Diff (08/14/17 08:46) Comprehensive Metabolic Panel (08/14/17 08:46) Urinalysis - C+S If Indicated (08/14/17 08:46) Chest, Single Ap (08/14/17 ) Iv Access Insert/Monitor (08/14/17 08:46) Ecg Monitoring (08/14/17 08:46) Oximetry (08/14/17 08:46) Lactic Acid (08/14/17 08:46) Sodium Chlor 0.9% 1000 Ml Inj (Ns 1000 M (08/14/17 09:00) Ondansetron Inj (Zofran Inj) (08/14/17 09:00) Act Partial Throm Time (Ptt) (08/14/17 08:46) Prothrombin Time / Inr (Pt) (08/14/17 08:46) Metoclopramide Inj (Reglan Inj) (08/14/17 09:00) Urine Culture (08/14/17 09:52) Ceftriaxone Inj (Rocephin Inj) (08/14/17 11:30) Labs Laboratory Tests Test 08/14/17 09:03 08/14/17 09:52 08/14/17 10:10 White Blood Count 6.9 TH/MM3 Red Blood Count 4.15 MIL/MM3 Hemoglobin 14.1 GM/DL Hematocrit 40.5 % Mean Corpuscular Volume 97.6 FL Mean Corpuscular Hemoglobin 34.0 PG Mean Corpuscular Hemoglobin Concent 34.8 % Red Cell Distribution Width 12.2 % Platelet Count 268 TH/MM3 Mean Platelet Volume 9.8 FL Neutrophils (%) (Auto) 44.0 % Lymphocytes (%) (Auto) 36.6 % Monocytes (%) (Auto) 13.9 % Eosinophils (%) (Auto) 4.5 % Basophils (%) (Auto) 1.0 % Neutrophils # (Auto) 3.1 TH/MM3 Lymphocytes # (Auto) 2.5 TH/MM3 Monocytes # (Auto) 1.0 TH/MM3 Eosinophils # (Auto) 0.3 TH/MM3 Basophils # (Auto) 0.1 TH/MM3 CBC Comment DIFF FINAL Differential Comment Urine Color YELLOW Urine Turbidity HAZY Urine pH 6.0 Urine Specific [place] 1.014 Urine Protein TRACE mg/dL Urine Glucose (UA) NEG mg/dL Urine Ketones NEG mg/dL Urine Occult Blood NEG Urine Nitrite NEG Urine Bilirubin NEG Urine Urobilinogen LESS THAN 2.0 MG/DL Urine Leukocyte Esterase MOD Urine RBC 1 /hpf Urine WBC 5 /hpf Urine Squamous Epithelial Cells 1 /hpf Urine Transitional Epithelial Cells <1 /hpf Urine Bacteria MANY /hpf Urine Mucus MOD /lpf Microscopic Urinalysis Comment CATH-CULTURE IND Prothrombin Time 11.2 SEC Prothromb Time International Ratio 1.1 RATIO Activated Partial Thromboplast Time 25.7 SEC Blood Urea Nitrogen 8 MG/DL Creatinine 0.28 MG/DL Random Glucose 99 MG/DL Total Protein 5.9 GM/DL Albumin 2.6 GM/DL Calcium Level 7.5 MG/DL Alkaline Phosphatase 68 U/L Aspartate Amino Transf (AST/SGOT) 25 U/L Alanine Aminotransferase (ALT/SGPT) 22 U/L Total Bilirubin 0.3 MG/DL Sodium Level 128 MEQ/L Potassium Level 3.7 MEQ/L Chloride Level 97 MEQ/L Carbon Dioxide Level 20.0 MEQ/L Anion Gap 11 MEQ/L Estimat Glomerular Filtration Rate 273 ML/MIN Lactic Acid Level 1.9 mmol/L MDM Medical Decision Making Medical Screen Exam Complete: Yes Emergency Medical Condition: Yes Medical Record Reviewed: Yes (Past history confirmed, prior visits reviewed) Interpretation(s) CBC & BMP Diagram 08/14/17 09:03 08/14/17 10:10 Total Protein 5.9 L, Albumin 2.6 L, Calcium Level 7.5 L, Alkaline Phosphatase 68 , Aspartate Amino Transf (AST/SGOT) 25, Alanine Aminotransferase (ALT/SGPT) 22, Total Bilirubin 0.3 Last 24 hours Impressions Upper Extremity Ultrasound 08/14/17 0000 Signed Impressions: CONCLUSION: 1. The study is negative for upper extremity deep venous thrombosis except for nonvisualization of the cephalic vein but no evidence of thrombus. Humerus X-Ray 08/14/17 0000 Signed Impressions: CONCLUSION: Stable appearance to the old healed fracture of the distal humeral diaphysis wi th stable abnormal angulation. No acute finding is identified. Chest X-Ray 08/14/17 0000 Signed Impressions: CONCLUSION: Negative examination. Differential Diagnosis Fracture, DVT, cellulitis Narrative Course Will check x-ray and reevaluate. If no fracture will proceed with ultrasound 845 patient having an episode of nonbloody emesis, mother states she gets where she will gag. She was having hiccups so she gave her some sweetener under her tongue and does not know if that is related. She does state that she did give her Tylenol prior to coming in and given this and her low-grade temp here and now vomiting we will add on basic blood work. Ultrasound will be ordered as well as x-ray does not show large fracture. Patient has had no further emesis here. Patient's sodium is 128 which she has history of. Mother feels comfortable following closely with her primary care physician for this when I offered her observation. She was given Rocephin for her UTI and will be sent home on Keflex. All of mother's questions were answered and she was given return instructions. Diagnosis Primary Impression: UTI (urinary tract infection) Qualified Codes: N39.0 - Urinary tract infection, site not specified Additional Impressions: Hyponatremia Arm edema Patient Instructions: General Instructions Additional Instructions: return as needed, tylenol as needed, follow with primary tommorrow Med/Other Pt SpecificInfo: Prescription(s) given Scripts Cephalexin (Keflex) 500 Mg Cap 500 MG PO Q12H for Infection for 7 Days, #14 CAP 0 Refills Prov: Jacinta Landrum MD 08/14/17 Disposition: 01 DISCHARGE HOME Condition: Stable Jacinta Landrum MD Aug 14, 2017 08:01
[2017-08-14] MEDS ORDERED: ONDANSETRON HCL 4 MG/2 ML VIAL IV PUSH ONE (09:00)
[2017-08-14] MEDS ORDERED: METOCLOPRAMIDE HCL 10 MG/2 ML VIAL IV PUSH ONE (09:00)
[2017-08-14] MEDS ORDERED: SODIUM CHLOR 0.9% 1000 ML INJ 1,000 ML IV ONE (09:00)
--- NOTE | 2017-08-14 09:13 | RADRPT ---
EXAM DATE: 08/14/2017 8:32 AM EDT AGE/SEX: 37 years / Female INDICATIONS: Right humerus pain from unknown injury. CLINICAL DATA: This is the patient's initial encounter. Patient reports that signs and symptoms have been present for 1 day and indicates a pain score of 8/10. MEDICAL/SURGICAL HISTORY: Osteoporosis. Seizures. Cerebral palsy. . Previous fracture to right humerus. COMPARISON: synapse default, HUMERUS RIGHT (MIN 2VWS), 12/15/2014. . FINDINGS: 2 views of the right humerus demonstrate abnormal angulation of the distal humeral diaphysis with red roximately 24 degrees of angulation. The distal humerus appears to be angulated posteriorly and later ally. There is associated bony callus. No erosion is identified. No soft tissue abnormality or radiop aque foreign body is identified. CONCLUSION: Stable appearance to the old healed fracture of the distal humeral diaphysis with stable abnormal ang ulation. No acute finding is identified. Electronically signed by: Wilian Toth MD 08/14/2017 9:11 AM EDT
[2017-08-14 09:33] LABS: AUTOMATED NEUTROPHIL # 3.1 TH/MM3 (1.8-7.7); BASOPHIL # 0.1 TH/MM3 (0-0.2); EOSINOPHIL # 0.3 TH/MM3 (0-0.4); EOSINOPHIL % 4.5 % (0.0-4.0); HEMATOCRIT 40.5 % (35.0-46.0); HEMOGLOBIN 14.1 GM/DL (11.6-15.3); LYMPH % 36.6 % (9.0-44.0); LYMPHOCYTE # 2.5 TH/MM3 (1.0-4.8); MEAN CELL VOLUME 97.6 FL (80.0-100.0); MEAN CORPUSCULAR HGB CONC 34.8 % (32.0-36.0); MEAN PLATELET VOLUME 9.8 FL (7.0-11.0); MONO % 13.9 % (0.0-8.0); PLATELET COUNT 268 TH/MM3 (150-450); RED BLOOD COUNT 4.15 MIL/MM3 (4.00-5.30); RED CELL DISTRIBUTION WIDTH 12.2 % (11.6-17.2); WHITE BLOOD COUNT 6.9 TH/MM3 (4.0-11.0)
--- NOTE | 2017-08-14 09:38 | RADRPT ---
EXAM DATE: 08/14/2017 9:35 AM EDT AGE/SEX: 37 years / Female INDICATIONS: Right arm swelling. CLINICAL DATA: This is the patient's initial encounter. Patient reports that signs and symptoms have been present for 1 day and indicates a pain score of Nonresponsive. MEDICAL/SURGICAL HISTORY: Gastroesophageal reflux disease. Glasses. Rett syndrome. Seizures. Ce rebral palsy. Pneumonia. Hiatal hernia. Inguinal hernia. Osteoporosis. Claustrophobia. Urinary tract infection. Cholecystectomy. G-tube. COMPARISON: No prior Barton exams available for comparison. FINDINGS: There is spontaneous flow documented in the brachial, basilic, axillary, and subclavian veins. The c ephalic vein was difficult to identify but no obvious thrombus was seen The vessels are compressible and augmentation response is documented. No filling defects are seen. The flow is phasic with respi ration. Direction of flow in the jugular vein is caudal. CONCLUSION: 1. The study is negative for upper extremity deep venous thrombosis except for nonvisualization of t he cephalic vein but no evidence of thrombus. Electronically signed by: Matthew Rojas MD 08/14/2017 9:37 AM EDT
--- NOTE | 2017-08-14 09:58 | RADRPT ---
EXAM DATE: 08/14/2017 9:54 AM EDT AGE/SEX: 37 years / Female INDICATIONS: Short of breath. CLINICAL DATA: This is the patient's initial encounter. Patient reports that signs and symptoms have been present for 1 day and indicates a pain score of Nonresponsive. MEDICAL/SURGICAL HISTORY: . Seizures. Cerebral palsy. None. COMPARISON: synapse default, CHEST SINGLE AP, 09/29/2011. . FINDINGS: A single AP view of the chest demonstrates the lungs to be symmetrically aerated without evidence of mass, infiltrate or effusion. The cardiomediastinal contours are unremarkable. Osseous structures a re intact. CONCLUSION: Negative examination. Electronically signed by: Wilian Reed MD 08/14/2017 9:57 AM EDT
[2017-08-14 10:02] VITALS: BP 92/65; PULSE 86; RESP 20; O2SAT 96
[2017-08-14 10:03] VITALS: O2SAT 96
[2017-08-14 10:43] LABS: BACTERIA, URINE MANY /hpf; BILIRUBIN, URINE NEG (NEG); BLOOD, URINE NEG (NEG); GLUCOSE,URINE NEG (NEG); KETONE, URINE NEG (NEG); MUCUS URINE MOD /lpf (OCC); NITRITE,URINE NEG (NEG); SQUAMOUS EPITHELIAL CELL URINE 1 /hpf (0-5); TRANSITIONAL EPI CELLS, URINE <1 /hpf; URINE COLOR YELLOW (YELLW/STRAW); URINE LEUKOCYTE ESTERASE MOD (NEG)
[2017-08-14 10:50] LABS: INTERNATIONAL NORMALIZED RATIO 1.1 RATIO; PROTHROMBIN TIME - PATIENT 11.2 SEC (9.8-11.6)
[2017-08-14 11:02] LABS: ALT (GPT) 22 U/L (10-53)
[2017-08-14 11:04] LABS: ALKALINE PHOSPHATASE 68 U/L (45-117); TOTAL BILIRUBIN ADULT 0.3 MG/DL (0.2-1.0); TOTAL PROTEIN 5.9 GM/DL (6.4-8.2)
[2017-08-14 11:13] LABS: ALBUMIN 2.6 GM/DL (3.4-5.0); AST (GOT) 25 U/L (15-37); BLOOD UREA NITROGEN 8 MG/DL (7-18); CALCIUM 7.5 MG/DL (8.5-10.1); CHLORIDE 97 MEQ/L (98-107); CREATININE 0.28 MG/DL (0.50-1.00); GLOMERULAR FILTRATION RATE 273 ML/MIN (>89); GLUCOSE,RANDOM 99 MG/DL (74-106); SODIUM (NA) 128 MEQ/L (136-145)
[2017-08-14] MEDS ORDERED: cefTRIAXone INJ 1,000 MG in SODIUM CHLORIDE 0.9% INJ 100 ML IV ONE (11:30)
[2017-08-14] MEDS ORDERED: CEPH-460 PO (11:58)
== END 2017-08-14 12:39 | disposition home or self-care (01) ==
LOC: NEPE 07:09
DX: N39.0 Urinary tract infection, site not specified (principal); B96.20 Unspecified Escherichia coli [E. coli] as the cause of diseases classified elsewhere; E87.1 Hypo-osmolality and hyponatremia; R60.0 Localized edema; R06.6 Hiccough; G80.9 Cerebral palsy, unspecified; F84.2 Rett's syndrome; K21.9 Gastro-esophageal reflux disease without esophagitis; K44.9 Diaphragmatic hernia without obstruction or gangrene
CPT/HCPCS: 71045; 73060; 80053; 81001; 83605; 85025; 85610; 85730; 87077; 87086; 87186; 93971; 96361; 96374; 96375; 99284; J0696; J2765; J7030